=== PATIENT | female | born 1975 | race Two or more races ===

== ENCOUNTER 2024-10-18 05:28 | Emergency (ER) | payer MEDICAID, OTHER ==
[~2024-10-18] VITALS: Ht 160 cm; Wt 124.0 kg
--- NOTE | 2024-10-18 06:38 | ED.PDOC ---
Musculoskeletal HPI Comments 49 year old female presents to the ED with no prior associations to the c/c of Bilateral lower extremity and ankle edema. Pt states that the swelling stated approx 2x days ago, accompanied by pelvic pain that started within the last 2x hours. Pt states that she is unable to walk or apply any form of pressure to her legs at this time. Pt Denies fever, chills, coughing, N/V/D, SOB, Chest pain, or other associated symptoms, modifiers, or recent injuries or sick contact that this time. Chief Complaint: Lower Extremity Time Seen by MD: 06:32 Reviewed Notes: Nurses Notes, Medications, Allergies Allergies: Coded Allergies: Aspirin (Verified Allergy, Unknown, 10/18/24) Information Source: Patient, Spouse Mode of Arrival: Wheelchair Location: Bilateral Extremity Location: Ankle, Calf Timing: Hours Prehospital treatment: None Severity: Moderate Able to Move Extremity: No Pain: Moderate Hand Dominance: Right Mechanism: None Circumstances: Spontaneous Symptoms: Swelling, Pain DVT Risk Factors: NONE Associated signs and symptoms: Back pain, Ankle pain Past Medical History PAST MEDICAL HISTORY: Denies Surgical History: Denies all surgeries SPANISH LECTURER History: No Pertinent SPANISH LECTURER History Family History Family History: Reviewed,noncontributory to illness, No family hx of Cancer, No family hx of DM, No family hx of Heart kevin, No family hx of HTN, No family hx ofKidney kevin, No family hx of Liver kevin, No family hx of Lung kevin, No family hx of Stroke Social History Smoker: Non-Smoker Alcohol: Denies ETOH Use Drugs: Denies Drug Use Lives In: Home Constitutional: denies: chills, diaphoresis, fatigue, fever, malaise, sweats, weakness, others EENTM: denies: blurred vision, double vision, ear bleeding, ear discharge, ear drainage, ear pain, ear ringing, eye pain, eye redness, hearing loss, mouth pain, mouth swelling, nasal discharge, nose bleeding, nose congestion, nose pain, photophobia, tearing, throat pain, throat swelling, voice changes, others Respiratory: denies: cough, hemoptysis, orthopnea, SOB at rest, shortness of breath, SOB with excertion, stridor, wheezing, others Cardiovascular: denies: chest pain, dizzy spells, diaphoresis, Dyspnea on exertion, edema, irregular heart beat, left arm pain, lightheadedness, palpitations, PND, syncope, others Gastrointestinal: denies: abdomen distended, abdominal pain, blood streaked bowels, constipated, diarrhea, dysphagia, difficulty swallowing, hematemesis, melena, nausea, poor appetite, poor fluid intake, rectal bleeding, rectal pain, vomiting, others Genitourinary: denies: abnormal vagina bleeding, burning, dyspareunia, dysuria, flank pain, frequency, hematuria, incontinence, pain, , vagina discharge, urgency, others Neurological: denies: dizziness, fainting, headache, left sided numbness, left sided weakness, numbness, paresthesia, pre-existing deficit, right sided numbness, right sided weakness, seizure, speech problems, tingling, tremors, weakness, others Musculoskeletal: reports: back pain, others (Bilateral leg and ankel edema); denies: gout, joint pain, joint swelling, muscle pain, muscle stiffness, neck pain Integumetry: denies: bruises, change in color, change in hair/nails, dryness, laceration, lesions, lumps, rash, wounds, others Allergic/Immunocompromised: denies: Difficulty Healing, Frequent Infections, Hives, Itching, others Hematologic/Lymphatic: denies: anemia, blood clots, easy bleeding, easy bruising, swollen glands, others Endocrine: denies: excessive hunger, excessive sweating, excessive thirst, excessive urination, flushing, intolerance to cold, intolerance to heat, unexplained weight gain, unexplained weight loss, others Psychiatric: denies: anxiety, bipolar disorder, depression, hopeless, panic disorder, schizophrenia, sleepless, suicidal, others All Other Systems: Reviewed and Negative Physical Exam General Appearance: Moderate Distress, Obese HEENT: Normal ENT Inspection, Pharynx Normal, TMs Normal Neck: Full Range of Motion, Non-Tender, Normal, Normal Inspection Respiratory: Chest Non-Tender, Lungs Clear, No Accessory Muscle Use, No Respiratory Distress, Normal Breath Sounds Cardiovascular: No Edema, No JVD, No Murmur, No Gallop, Normal Peripheral Pulses, Regular Rate/Rhythm Breast Exam: Deferred Gastrointestinal: No Organomegaly, Non Tender, No Pulsatile Mass, Normal Bowel Sounds, Soft Genitalia: Deferred Pelvic: Deferred Rectal: Deferred Extremities: Calf tenderness, Leg edema, Normal inspection, Normal range of motion, Non-tender, No pedal edema, Swelling, Tender Musculoskeletal : Apperance: Normal Neurologic: Alert, state's attorney II-XII nml as Tested, No Motor Deficits, Normal Affect, Normal Mood, No Sensory Deficits Cerebellar Function: Normal Reflexes: Normal Skin: Dry, Normal Color, Warm Lymphatic: No Adenopathy Was a procedure done? Was a procedure done?: No Differential Diagnosis EXT Differential Diagnosis: Fracture, Sprain, Contusion, Strain, Other (Sciatica) X-Ray, Labs, Meds, VS Vital Signs Date Time Temp Pulse Resp B/P (MAP) Pulse Ox O2 Delivery O2 Flow Rate FiO2 10/18/24 07:35 97.5 69 17 107/67 (80) 97 97.5 10/18/24 07:35 69 17 97 Room Air* 0 21 10/18/24 06:01 97.7 77 18 115/66 (82) 97.7 Lab Test 10/18/24 06:41 Range/Units White Blood Count 7.3 4.4-10.8 10^3/uL Red Blood Count 3.98 L 4.0-5.20 10^6/uL Hemoglobin 11.6 L 12.2-16.2 g/dL Hematocrit 34.9 L 36.0-46.0 % Mean Corpuscular Volume 87.6 80.0-100.0 fL Mean Corpuscular Hemoglobin 29.1 28.0-32.0 pg Mean Corpuscular Hemoglobin Concent 33.3 32.0-36.0 g/dL Red Cell Distribution Width 14.2 11.8-14.3 % Platelet Count 313 140-450 10^3/uL Mean Platelet Volume 6.8 L 6.9-10.8 fL Neutrophils (%) (Auto) 65.8 37.0-80.0 % Lymphocytes (%) (Auto) 24.2 10.0-50.0 % Monocytes (%) (Auto) 6.9 0.0-12.0 % Eosinophils (%) (Auto) 2.1 0.0-7.0 % Basophils (%) (Auto) 1.0 0.0-2.0 % Neutrophils # (Auto) 4.8 1.6-8.6 10 ^3/uL Lymphocytes # (Auto) 1.8 0.4-5.4 10 ^3/uL Monocytes # (Auto) 0.5 0-1.3 10 ^3/uL Eosinophils # (Auto) 0.2 0-0.8 10 ^3/uL Basophils # (Auto) 0.1 0-0.2 10 ^3/uL Nucleated Red Blood Cells 0.0 % Sodium Level 140 136-145 mmol/L Potassium Level 4.7 3.5-5.1 mmol/L Chloride Level 107 98-107 mmol/L Carbon Dioxide Level 25 20-31 mmol/L Anion Gap 8 5-15 Blood Urea Nitrogen 18 9-23 mg/dL Creatinine 1.39 H 0.550-1.02 mg/dL Glomerular Filtration Rate Calc 47 >90 mL/min BUN/Creatinine Ratio 12.9 10.0-20.0 Serum Glucose 103 74-106 mg/dL Calcium Level 8.9 8.7-10.4 mg/dL Troponin I High Sensitivity 11 </=34 ng/L B-Type Natriuretic Peptide 55.11 0-100 pg/mL Current Medications Medications (Trade) Dose Ordered Sig/Mendoza Route Start Time Stop Time Status Last Admin Famotidine (Pepcid Tablet) 20 mg ONCE ONCE PO 10/18/24 06:45 10/18/24 06:46 DC 10/18/24 07:39 Ondansetron HCl (Zofran Po) 4 mg ONCE ONCE PO 10/18/24 06:45 10/18/24 06:46 DC 10/18/24 07:39 Acetaminophen/ Hydrocodone Bitart (Chelsea 5/325MG Tab) 1 tab ONCE ONCE PO 10/18/24 06:45 10/18/24 06:46 DC 10/18/24 07:39 Cyclobenzaprine HCl (Flexeril Tablet) 5 mg ONCE ONCE PO 10/18/24 06:45 10/18/24 06:46 DC 10/18/24 07:39 PATIENT: MACEY MATAMOROS ACCT: [id number] UNIT: [id number] : 1975 LOC: ER ROOM / BED: / AGE / SEX: 49 / F ADM STATUS: REG ER SERVICE 0 ORDERING PHYSICIAN: MARSHALL TAPIA MD PROCEDURE(s): LUMB2 - LUMBAR SPINE 3 VIEW REASON: left hip pain ORDER NUMBER(s): [id number], ACCESSION NUMBER(s): [id number] EXAM: XR Lumbosacral Spine, 2 or 3 Views CLINICAL INDICATION: left hip pain TECHNIQUE: Frontal and lateral views of the lumbar spine and sacrum. COMPARISON: None FINDINGS: VERTEBRAE: Unremarkable. No acute fracture. Normal alignment. SACRUM/COCCYX: Unremarkable as visualized. No acute fracture. DISC SPACES: No acute findings. No significant narrowing. SOFT TISSUES: Unremarkable. OTHER FINDINGS: . IMPRESSION: No acute fracture. ENT: MACEY MATAMOROS ACCT: [id number] UNIT: [id number] : 1975 LOC: ER ROOM / BED: / AGE / SEX: 49 / F ADM STATUS: REG ER SERVICE ORDERING PHYSICIAN: MARSHALL TAPIA MD PROCEDURE(s): LHIP - L HIP COMPLETE XRAY REASON: left hip pain ORDER NUMBER(s): [id number], ACCESSION NUMBER(s): [id number] EXAM: XR Left Hip With Pelvis When Performed, 2 or 3 Views CLINICAL INDICATION: left hip pain TECHNIQUE: Two or three views of the left hip with pelvis when performed. COMPARISON: None FINDINGS: BONES/JOINTS: Unremarkable. No acute fracture. No dislocation. SOFT TISSUES: Unremarkable. OTHER FINDINGS: . IMPRESSION: No acute findings in the left hip. ENT: MACEY MATAMOROS ACCT: [id number] UNIT: [id number] : 1975 LOC: ER ROOM / BED: / AGE / SEX: 49 / F ADM STATUS: REG ER SERVICE 0631 ORDERING PHYSICIAN: MARSHALL TAPIA MD PROCEDURE(s): CXRP - CHEST PORTABLE REASON: bilateral leg swelling ORDER NUMBER(s): [id number], ACCESSION NUMBER(s): [id number] EXAM: XR Chest, 1 View CLINICAL INDICATION: bilateral leg swelling TECHNIQUE: Frontal view of the chest. COMPARISON: None FINDINGS: LUNGS AND PLEURAL SPACES: Unremarkable. No consolidation. No pneumothorax. HEART: Unremarkable. No cardiomegaly. MEDIASTINUM: Unremarkable. Normal mediastinal contour. BONES/JOINTS: Unremarkable. No acute fracture. OTHER FINDINGS: . IMPRESSION: No acute cardiopulmonary process. Time of 1ST Reevaluation: 07:03 Reevaluation 1ST: Unchanged Patient Education/Counseling: Diagnosis, Treatment Family Education/Counseling: Diagnosis, Treatment Departure 1 Departure Time of Disposition: 09:04 (Patient likely with sciatica. Patient was offered admission to the hospital however patient decided to go home and we will try outpatient treatment. We will discharge patient home with outpatient follow up) Impression: Primary Impression: Sciatica Qualified Codes: M54.32 - Sciatica, left side Disposition: HOME / SELF CARE / HOMELESS Condition: Stable Referrals: TIO MA MD Additional Instructions: Your workup today was benign. You likely have sciatica. You were prescribed muscle relaxers and pain medication. Please take as directed. For pain you can take the followinam: Ibuprofen 400mg with food Noon: Acetaminophen 1000mg 4pm: Ibuprofen 400mg with food 8pm: Acetaminophen 1000mg You should follow up with your regular doctor within one week to ensure you are doing better. If your symptoms worsen or you have any other concerns then please return to the ER. e-Prescriptions Cyclobenzaprine Hcl (Cyclobenzaprine Hcl) 10 Mg Tab 10 MG PO TID PRN for 4 Days, #12 TAB Prov: MARSHALL TAPIA MD 10/18/24 Oxycodone HCl (Oxycodone Hydrochloride) 5 Mg Tab 5 MG PO TID PRN for 4 Days, #12 TAB Prov: MARSHALL TAPIA MD 10/18/24 Discharged With: Self Critical Care Note Critical Care Time?: No Stability Stability form required: No I personally scribed for MARSHALL TAPIA MD ([email or web address]) on 10/18/24 at 06:38. Electronically submitted by Naga Kathleen ([email or web address]). I personally scribed for MARSHALL TAPIA MD ([email or web address]) on 10/18/24 at 08:15. Electronically submitted by Naga Kathleen ([email or web address]). MARSHALL TAPIA MD October 18, 2024 06:38
[2024-10-18 07:01] LABS: Potassium 4.7 mmol/L (3.5-5.1); Sodium 140 mmol/L (136-145)
[2024-10-18 07:02] LABS: Anion Gap 8 (5-15); Calcium 8.9 mg/dL (8.7-10.4); Carbon Dioxide 25 mmol/L (20-31)
[2024-10-18 07:04] LABS: Basophils # (auto) 0.1 10 ^3/uL (0-0.2); Eosinophils # (auto) 0.2 10 ^3/uL (0-0.8); Eosinophils % (auto) 2.1 % (0.0-7.0); Hematocrit 34.9 % (36.0-46.0); Hemoglobin 11.6 g/dL (12.2-16.2); Lymphocytes # (auto) 1.8 10 ^3/uL (0.4-5.4); Lymphocytes % (auto) 24.2 % (10.0-50.0); Mean Corpuscular Hemoglobin 29.1 pg (28.0-32.0); Mean Corpuscular Hgb Conc. 33.3 g/dL (32.0-36.0); Mean Corpuscular Volume 87.6 fL (80.0-100.0); Monocytes # (auto) 0.5 10 ^3/uL (0-1.3); Monocytes % (auto) 6.9 % (0.0-12.0); Neutrophils # (auto) 4.8 10 ^3/uL (1.6-8.6); Neutrophils % (auto) 65.8 % (37.0-80.0); Platelet Count (auto) 313 10^3/uL (140-450); Red Blood Cells 3.98 10^6/uL (4.0-5.20); Red Cell Distribution Width 14.2 % (11.8-14.3); White Blood Cell 7.3 10^3/uL (4.4-10.8)
[2024-10-18 07:07] LABS: BUN/Creatinine Ratio 12.9 (10.0-20.0); Blood Urea Nitrogen 18 mg/dL (9-23); Glucose 103 mg/dL (74-106)
[2024-10-18 07:08] LABS: Chloride 107 mmol/L (98-107)
--- NOTE | 2024-10-18 07:28 | DVH ---
EXAM: XR Lumbosacral Spine, 2 or 3 Views CLINICAL INDICATION: left hip pain TECHNIQUE: Frontal and lateral views of the lumbar spine and sacrum. COMPARISON: None FINDINGS: VERTEBRAE: Unremarkable. No acute fracture. Normal alignment. SACRUM/COCCYX: Unremarkable as visualized. No acute fracture. DISC SPACES: No acute findings. No significant narrowing. SOFT TISSUES: Unremarkable. OTHER FINDINGS: . IMPRESSION: No acute fracture.
[2024-10-18 07:35] VITALS: BP 107/67; PULSE 69; RESP 17; TEMP 97.5; O2SAT 97
[2024-10-18] MEDS: ONDANSETRON ODT 4 MG TAB PO ONE (07:39)
[2024-10-18] MEDS: CYCLOBENZAPRINE HCL 10 MG TAB PO ONE (07:39)
[2024-10-18] MEDS: HYDROcodone-ACET 5/325MG TAB PO ONE (07:39)
[2024-10-18] MEDS: FAMOTIDINE 20 MG TAB PO ONE (07:39)
--- NOTE | 2024-10-18 07:57 | DVH ---
EXAM: XR Left Hip With Pelvis When Performed, 2 or 3 Views CLINICAL INDICATION: left hip pain TECHNIQUE: Two or three views of the left hip with pelvis when performed. COMPARISON: None FINDINGS: BONES/JOINTS: Unremarkable. No acute fracture. No dislocation. SOFT TISSUES: Unremarkable. OTHER FINDINGS: . IMPRESSION: No acute findings in the left hip.
--- NOTE | 2024-10-18 07:58 | DVH ---
EXAM: XR Chest, 1 View CLINICAL INDICATION: bilateral leg swelling TECHNIQUE: Frontal view of the chest. COMPARISON: None FINDINGS: LUNGS AND PLEURAL SPACES: Unremarkable. No consolidation. No pneumothorax. HEART: Unremarkable. No cardiomegaly. MEDIASTINUM: Unremarkable. Normal mediastinal contour. BONES/JOINTS: Unremarkable. No acute fracture. OTHER FINDINGS: . IMPRESSION: No acute cardiopulmonary process.
[2024-10-18] MEDS ORDERED: CYCL-839 PO (09:07)
[2024-10-18] MEDS ORDERED: OXYC-900 PO (09:07)
== END 2024-10-18 09:12 | disposition home or self-care (01) ==
LOC: ER 05:28
DX: M54.42 Lumbago with sciatica, left side (principal); R10.2 Pelvic and perineal pain; Z88.6 Allergy status to analgesic agent; Z79.899 Other long term (current) drug therapy
CPT/HCPCS: 36415; 71045; 72100; 73502; 80048; 83880; 84484; 85025; 99284; Q0162